=== PATIENT | female | born 1945 | race Caucasian/White ===

== ENCOUNTER 2021-07-21 11:48 | Inpatient (IN) | payer OTHER, SELFPAY ==
[~2021-07-21] VITALS: Ht 154.9 cm; Wt 50.8 kg
[2021-07-21 11:55] VITALS: BP 146/69
--- NOTE | 2021-07-21 11:55 | NUR ---
75 y/o F BIBA from home c/o syncope. Per EMS, patient had a witness syncope by at home and was assisted from standing position onto bed. states patient did not fall or had injury. Denies head/neck/back pain. EMS staets +LOC. +Orthostatic hypotension on scene: BP laying 140 systolic to sitting 110 systolic with HR increase 11bpm. Patient A&Ox3 for EMS, A&Ox4 upon ER arrival. Patient states soreness to generalized body, 8/10 pain. Reports constipation last BM: 2 weeks ago. 20G left AC by EMS with 200mL NS en route. at bedside reports has had appetite changes since + COVID in September and has lost 50 lbs since 09/2020. Pt denies nausea, vomiting, diarrhea, headache, blurry vision, abdominal pain, chest pain, SOB, cough, cold-like symptoms. Pt placed into gown and cognos bi developer. Skin warm/pink/dry. No bruising, deformities, bleeding noted to body/extremities. Bed locked in lowest position, side rails x 1, call light in reach. PMH/Sx/Meds: 2 bladder repairs, Tylenol PM, + COVID 09/2020 JANEE
[2021-07-21] MEDS ORDERED: NACL 0.9% 1,000 ML IV SCH ×2 (12:05→13:35)
[2021-07-21] MEDS ORDERED: cefTRIAXone 1,000 MG in DEXT 5% MINI-BAG PLUS 50 ML IV ONE (12:05)
--- NOTE | 2021-07-21 12:12 | NUR ---
Bedpan in place. Pt attempting to void.
[2021-07-21] MEDS ORDERED: cefTRIAXone 1,000 MG VIAL ONE (12:15)
--- NOTE | 2021-07-21 12:15 | NUR ---
Blood cultures, sample, and UA handed to CPT meera at ER bedside
--- NOTE | 2021-07-21 12:20 | NUR ---
EMT at bedside for EKG
--- NOTE | 2021-07-21 12:25 | NUR ---
RAD at bedside
[2021-07-21 12:37] LABS: BILIRUBIN,URINE 1+ (NEGATIVE); BLOOD, URINE 1+ (NEGATIVE); COLOR,URINE YELLOW (YELLOW); LEUKOCYTE ESTERASE ,URINE 1+ (NEGATIVE); NITRITE, URINE NEGATIVE (NEGATIVE); UGLUCOSE NEGATIVE (NEGATIVE)
[2021-07-21 12:44] LABS: CALCIUM OXALATE CRYSTALS,UR 1 /HPF (None Seen); RBC,URINE 0-5 /HPF (0-5); WBC,URINE 0-5 /HPF (0-5)
[2021-07-21 12:46] LABS: APPEARANCE,URINE SLIGHTLY HAZY (CLEAR)
[2021-07-21 12:48] LABS: BASOPHILS % (AUTO) 0.3 % (0.0-2.0); EOSINOPHILS % (AUTO) 0.5 % (0.0-4.0); HEMATOCRIT 37.5 % (36-48); HEMOGLOBIN 12.6 g/dL (12.0-16.0); LYMPHOCYTES # (AUTO) 1.9 K/uL (2.5-16.5); LYMPHOCYTES % (AUTO) 33.3 % (20.5-51.1); MEAN CORPUSCULAR HEMOGLOBIN 34 pg (27-31); MEAN CORPUSCULAR HGB CONC 34 g/dL (33-37); MEAN CORPUSCULAR VOLUME 101.8 fL (80-94); MONOCYTES # (AUTO) 0.3 K/uL (0.8-1.0); MONOCYTES % (AUTO) 4.9 % (1.7-9.3); NEUTROPHILS # (AUTO) 3.5 K/uL (1.8-7.7); PLATELET COUNT (AUTO) 176 K/uL (140-450); RED BLOOD CELL COUNT(AUTO) 3.68 MIL/uL (4.20-5.40); RED CELL DISTRIBUTION WIDTH 13.7 % (11.6-13.7); WHITE BLOOD COUNT (AUTO) 5.7 K/uL (4.8-10.8)
--- NOTE | 2021-07-21 13:05 | NUR ---
Pt states need to void. Bedpan provided. Urine output 50mL yellow/clear.
--- NOTE | 2021-07-21 13:10 | NUR ---
Patient placed onto diaper.
--- NOTE | 2021-07-21 13:15 | NUR ---
[facility]
--- NOTE | 2021-07-21 13:30 | NUR ---
Pt returned from CT by abhishek. Placed back onto household personal assistant. Bed locked in lowest position, side rails x 1.
[2021-07-21 14:05] LABS: ALBUMIN 3.7 g/dL (3.4-5.0); ANION GAP 16.1 (8-16); ASPARTATE AMINOTRANSFERASE 18 U/L (15-37); CARBON DIOXIDE 26.6 mmol/L (21-32); CHLORIDE 107 mmol/L (98-107); CREATININE 0.8 mg/dL (0.6-1.3); GLUCOSE 72 mg/dL (74-106); POTASSIUM 3.7 mmol/L (3.5-5.1); SODIUM SERUM 146 mmol/L (136-145); TOTAL BILIRUBIN 0.5 mg/dL (0.0-1.0); UREA NITROGEN, BLOOD 22 mg/dL (7-18)
--- NOTE | 2021-07-21 14:14 | NUR ---
Patient resting in position of comfort. A&Ox4 at this time. quality assurance monitor body in place. Bed locked in lowest position, side rails x 1.
--- NOTE | 2021-07-21 14:15 | NUR ---
Contacted Nayana for report, states to call back in 10 minutes
[2021-07-21] MEDS ORDERED: [UNRECOGNIZED DRUG - CODE] PO (14:16)
--- NOTE | 2021-07-21 14:25 | NUR ---
Attempted call back, no answer.
--- NOTE | 2021-07-21 14:40 | NUR ---
Patient will be admitted to care of Dr. Delgado. Admited to Med/Surg. Will go to room 124B. Belongings list completed. Report to KAMARI Kraus.
--- NOTE | 2021-07-21 14:45 | NUR ---
PATIENT ARRIVED ON UNIT FROM ED. ARRIVED VIA GURNEY. ACCOMPANIED BY . BEDSIDE REPORT GIVEN. WILL CONTINUE TO MONITOR.
--- NOTE | 2021-07-21 15:10 | NUR ---
PATIENT IS ALERT AND ORIENTED X3-4. AT TIMES FORGETS DATE. PATIENT IS ABLE TO VERBALIZE NEEDS TO STAFF. PATIENT IS ON ROOM AIR, WITH 02 SAT AT 97%. RESPIRATIONS ARE EVEN AND UNLABORED. NO SIGNS OF DISTRESS NOTED. PATIENT IS ON REGULAR DIET, PREFERS NO MEAT, LIKES FISH. ABD IS NON-TENDER, NON-DISTENDED WITH BOWEL SOUNDS PRESENT. PATIENT IS CONTINENT OF BOWEL AND BLADDER. PATIENT HAS IV TO LAC 20G. IV IS INTACT AND PATENT. SKIN IS WARM, DRY, AND INTACT. PATIENT PRESENTED TO ER FOR CHIEF COMPLAINT OF SYNCOPE. DIAGNOSIS IS SYNCOPE AND UTI. PATIENT HAS NO PRIOR HISTORY OF RECENT HOSPITALIZATION. PATIENT STATES SHE HAD COVID EARLIER THIS YEAR, AND SINCE THIS HER APPETITE HAS LOWERED A BIT. PATIENT STATES SHE LIVES AT HOME WITH HER . STATES THAT SHE IS ABLE TO AMBULATE AT HOME, AND DOES MOST ADL'S INDEPENDENTLY, EXCEPT FOR SHOWING. STATES SHE REQUIRES MILD ASSISTANCE WITH SHOWERS. PATIENT STATES SHE DOES NOT TAKE ROUTINE MEDICATIONS AT HOME, ONLY TYLENOL PM AND THAT IS IF SHE HAS TROUBLE SLEEPING. WILL CONTINUE TO MONITOR. CALL LIGHT WITHIN REACH. ALL SAFETY MEASURES IN PLACE.
[2021-07-21 16:00] VITALS: BP 127/64
[2021-07-21] MEDS ORDERED: ACETAMINOPHEN 325 MG TAB PO PRN (16:25)
[2021-07-21] MEDS ORDERED: guaiFENesin DM 200/20 MG-10 ML 10 ML UDC PO PRN (16:25)
[2021-07-21] MEDS ORDERED: HYDROcodone/APAP 7.5/325 MG 1 TAB PO PRN (16:25)
[2021-07-21] MEDS ORDERED: DOCUSATE SODIUM 100 MG GELCAP PO PRN (16:25)
[2021-07-21] MEDS ORDERED: ONDANSETRON 4 MG/2 ML VIAL IM/IVP PRN (16:25)
[2021-07-21] MEDS ORDERED: MECLIZINE 25 MG TAB PO PRN (16:30)
--- NOTE | 2021-07-21 17:03 | NUR ---
DID ROUNDS ON PATIENT. PATIENT IS IN BED AT THIS TIME SPEAKING TO HER . NO COMPLAINTS OF PAIN OR DISCOMFORT. NO SIGNS OF DISTRESS NOTED. WILL CONTINUE TO MONITOR.
[2021-07-21 17:30] LABS: BARBITURATE, URINE NEGATIVE ng/ml (NEG <=200); BENZODIAZEPINE, URINE NEGATIVE ng/mL (NEG <=200); CANNABINOID, URINE NEGATIVE ng/mL (NEG <=50); COCAINE, URINE NEGATIVE ng/mL (NEG <=300); OPIATE, URINE NEGATIVE ng/mL (NEG <=2000); PHENCYCLIDINE SCREEN,URINE NEGATIVE ng/mL (NEG <=25)
[2021-07-21 18:05] LABS: CHOL/HDL RATIO 3.9 (1-4.5); FREE T4 (FREE THYROXINE) 1.19 ng/dL (0.76-1.46); MAGNESIUM 1.8 mg/dL (1.8-2.4); PHOSPHORUS 3.2 mg/dL (2.5-4.9); THYROID STIMULATING HORMONE 1.05 uIU/mL (0.34-3.74)
[2021-07-21 18:07] LABS: PROTHROMBIN TIME 10.1 secs (10.8-13.4)
[2021-07-21] MEDS: DEXT 5% /NACL 0.9% 1,000 ML IV SCH (18:26)
--- NOTE | 2021-07-21 19:20 | NUR ---
ENDORSED PATIENT TO FELT CEMENTER NURSE. PATIENT STABLE.
--- NOTE | 2021-07-21 19:21 | NUR ---
RECEIVED ENDORSEMENT FROM MORNING SHIFT FOR CONTINUITY OF CARE. PATIENT IS AWAKE AND ALERT. A&OX4. VERBALLY RESPONSIVE AND ABLE TO COMMUNICATE NEEDS. DENIES PAIN AT THIS TIME. O2 SAT OF 97% ON RA. RESPIRATIONS EVEN AND UNLABORED. NO APPARENT S/SX OF ACUTE DISTRESS. SKIN IS WARM, DRY, AND INTACT. IV SITE IN LAC 20G PATENT/INTACT WITH D5NS INFUSING AT 100 ML PER HOUR PER MD ORDER. WHITE COMMUNICATION BOARD AND POC UPDATED. ALL SAFETY MEASURES IN PLACE. CALL LIGHT WITHIN REACH. ENCOURAGED PATIENT TO USE CALL LIGHT FOR ANY NEEDS/ASSISTANCE. WILL CONTINUE TO MONITOR.
--- NOTE | 2021-07-21 20:00 | NUR ---
PATIENT'S PLAN OF CARE WAS DISCUSSED AND REVIEWED WITH DEEP WELL CONTRACTOR: CASANDRA HALE
--- NOTE | 2021-07-21 21:00 | NUR ---
VOIDED MODERATE AMOUNT OF YELLOW URINE. CLEANSED AND MADE COMFORTABLE IN BED WITH PILLOWS. CALL LIGHT PLACED WITHIN REACH OF PATIENT. INSTRUCTED TO CALL NURSE WHEN NEEDING HELP. VERBALIZED UNDERSTANDING. PUT BED ON ALARM.
--- NOTE | 2021-07-21 23:00 | NUR ---
HAD SMALL AMOUNT OF BM, SOFT BROWN IN COLOR. CLEANSED AND REPOSITIONED IN BED WITH PILLOWS FOR COMFORT.
[2021-07-21] MEDS: ZOLPIDEM 5 MG TAB PO PRN (23:42)
--- NOTE | 2021-07-21 23:42 | NUR ---
UNABLE TO SLEEP, MEDICATED WITH AMBIEN PER MD ORDER. WITH FORGETFULNESS. REORIENTED TO HOSPITAL SETTING.
--- NOTE | 2021-07-22 00:42 | NUR ---
STILL AWAKE IN BED. OCCASIONALLY ATTEMPTING TO GET OUT OF BED. REORIENTED TO HOSPITAL SETTING.
--- NOTE | 2021-07-22 01:35 | NUR ---
ANSWERED CALL LIGHT. PATIENT IS REQUESTING TO BE PULLED UP. FIXED PATIENT'S POSITION IN BED AND MADE COMFORTABLE. IV MACHINE BEEPING. FLUSHED IV LINE WITH NS. NO SIGNS OF INFILTRATION NOTED. IV SITE PATENT AND INTACT. RESUMED IVF PER MD ORDER. PATIENT DENIES PAIN AT THIS TIME. RESPIRATIONS EVEN AND UNLABORED. WHITE BOARD COMMUNICATION UPDATED. ALL SAFETY MEASURES IN PLACE. CALL LIGHT WITHIN REACH. WILL CONTINUE TO MONITOR.
[2021-07-22] MEDS: DEXT 5% /NACL 0.9% 1,000 ML IV SCH ×3 (02:25→22:25)
--- NOTE | 2021-07-22 03:35 | NUR ---
PATIENT REQUESTED TO GO TO THE BR BUT EXPLAINED THAT PATIENT'S UNSTEADY GAIT IS NOT SAFE. PATIENT DOES NOT WANT TO USE BEDPAN. BEDSIDE COMMODE PROVIDED. PATIENT VOIDED. CLEANED PATIENT AND REPOSITIONED IN BED FOR COMFORT. PATIENT DENIES PAIN AT THIS TIME. RESPIRATIONS EVEN AND UNLABORED. NO APPARENT S/SX OF ACUTE DISTRESS. WHITE COMMUNICATION BOARD UPDATED. CALL LIGHT WITHIN REACH. WILL CONTINUE TO MONITOR.
[2021-07-22 04:00] VITALS: BP 115/62
--- NOTE | 2021-07-22 05:16 | NUR ---
CHECKED PATIENT. STABLE AND ASLEEP IN SUPINE POSITION. CHEST RISING AND FALLING. RESPIRATIONS EVEN AND UNLABORED. NO APPARENT S/SX OF ACUTE DISTRESS. WHITE BOARD COMMUNICATION UPDATED. ALL SAFETY MEASURES IN PLACE. CALL LIGHT WITHIN REACH. WILL CONTINUE TO MONITOR.
[2021-07-22 05:44] LABS: BASOPHILS % (AUTO) 0.2 % (0.0-2.0); EOSINOPHILS % (AUTO) 0.6 % (0.0-4.0); HEMATOCRIT 31.6 % (36-48); HEMOGLOBIN 10.9 g/dL (12.0-16.0); LYMPHOCYTES # (AUTO) 1.1 K/uL (2.5-16.5); LYMPHOCYTES % (AUTO) 22.1 % (20.5-51.1); MEAN CORPUSCULAR HEMOGLOBIN 35 pg (27-31); MEAN CORPUSCULAR HGB CONC 35 g/dL (33-37); MEAN CORPUSCULAR VOLUME 100.5 fL (80-94); MONOCYTES # (AUTO) 0.3 K/uL (0.8-1.0); MONOCYTES % (AUTO) 6.7 % (1.7-9.3); NEUTROPHILS # (AUTO) 3.5 K/uL (1.8-7.7); NEUTROPHILS % (AUTO) 70.4 % (42.2-75.2); PLATELET COUNT (AUTO) 157 K/uL (140-450); RED BLOOD CELL COUNT(AUTO) 3.15 MIL/uL (4.20-5.40); RED CELL DISTRIBUTION WIDTH 13.6 % (11.6-13.7)
[2021-07-22 05:51] LABS: ANION GAP 10.5 (8-16); CARBON DIOXIDE 27.8 mmol/L (21-32); CHLORIDE 109 mmol/L (98-107); CREATININE 0.6 mg/dL (0.6-1.3); GLUCOSE 94 mg/dL (74-106); POTASSIUM 3.3 mmol/L (3.5-5.1); SODIUM SERUM 144 mmol/L (136-145); UREA NITROGEN, BLOOD 14 mg/dL (7-18)
--- NOTE | 2021-07-22 07:19 | NUR ---
ENDORSED PATIENT TO MORNING SHIFT FOR CONTINUITY OF CARE. PATIENT IS STABLE.
--- NOTE | 2021-07-22 08:00 | NUR ---
Patient awake, alert but forgetful. Able to follow simple commands. Safety measures in place with call light within reach, safety measures in place and has no further needs.
[2021-07-22] MEDS: PANTOPRAZOLE 40 MG TABEC PO SCH (10:16)
[2021-07-22 12:00] VITALS: BP 123/64
--- NOTE | 2021-07-22 14:19 | NUR ---
PATIENT HAS BEEN SCREENED AND CATEGORIZED MODERATE NUTRITION RISK. PATIENT WILL BE SEEN WITHIN 3-5 DAYS OF ADMISSION. 07/22/21 07/26/[address]
[2021-07-22] MEDS: POTASSIUM CHLORIDE 10 MEQ TABER PO PRN (15:08)
--- NOTE | 2021-07-22 15:11 | NUR ---
DC PLANNING: THE PATIENT ADMITTED THROUGH THE ED WITH A SYNCOPAL EPISODE. THE PATIENT WAS POSITIVE FOR UTI, AND WAS ADMITTED FOR TREATMENT AND CARDIAC W/U. CM SPOKE WITH THE PATIENTS DANIELE BY PHONE REGARDING DISCHARGE PLANNING. THE PATIENT LIVES IN A SINGLE STORY HOUSE WITH HER AND ADULT GRANDSON. SHE IS SOMEWHAT SEDENTARY AND USUALLY AMBULATES IN THE HOUSE BUT NOT MUCH BEYOND THAT. THE PATIENT WAS HOSPITALIZED A PSYCHIATRIC IP AT [facility] FOR 2 WEEKS SECONDARY TO ANXIETY AND DEPRESSION. HER STATES THAT SHE HAS LOST 50 LBS SINCE SEPTEMBER AND THAT HER PCP DISCONTINUED HER ANTI-ANXIETY MEDICATIONS. SHE SEES HER PCP EVERY 6 MONTHS, AND DOES REQUIRE ASSISTANCE AT TIMES WITH ADLS. SHE HAS NO HISTORY OF HOME HEALTH OR DME USE, AND HAS NO OTHER HEALTH ISSUES. THE DC PLAN IS FOR THE PATIENT TO RETURN HOME WITH FAMILY WHEN CLINICALLY STABLE. CM WILL FOLLOW FOR NEEDS. Addendum: 07/23/21 at 1110 by Louise Carter CM DC PLANNING: ORDER FOR DC PLANNING TO SNF FOR P.T. AND IV ABX. CLINICALS SENT TO [facility] FOR THEIR SNF'IST TO REVIEW AND APPROVE. RANDELL SPOKE WITH THE PATIENTS DANIELE AND EXPLAINED THE NEED FOR SNF, AND THAT [facility] WILL DIRECT THE CM WHERE TO REFER THE PATIENT TO. DANIELE STATES HE'S IN AGREEMENT WITH SENDING THE PATIENT TO A CONTRACTED SNF, CM WILL UPDATE HIM ONCE THE PATIENT HAS BEEN REFERRED. CM WILL FOLLOW FOR NEEDS. Addendum: 07/23/21 at 1441 by Louise Carter CM DC PLANNING: PATIENT ACCEPTED TO [facility], ROOM 3A UNDER DR HAYS. [address]ESS [address] [phone] THE PATIENT IS NOT YET READY FOR DC, PER DR ANG ANTICIPATE DC THIS OR MONDAY. CLINICAL REVIEW LEFT FOR RANDELL KNOWLES AT [facility] ON HER VM SHE ASKED FOR JUSTIFICATION FOR CHANGING THE PATIENT FROM OBS TO IP. IF THE PATIENT DISCHARGES THIS BRAD NEEDS TO BE CALLED TO TRANSPORT, . AUTH NUMBER FOR TRANSPORT [id number]. RANDELL WILL FOLLOW FOR NEEDS. Addendum: 07/26/21 at 1446 by Louise Carter CM DC PLANNING: PATIENT TO DC TO [facility] TODAY. PATIENT GOING TO ROOM 3A, BEING PICKED UP BY [facility] BETWEEN 1530 AND 1630. DC INFORMATION GIVEN TO THE PATIENTS KAMARI MCDOWELL INCLUDING THE PHONE NUMBER TO CALL REPORT. RANDELL ALSO SPOKE WITH THE SNF TO LET THEM KNOW THAT THEY WILL NEED TO PROVIDE DINNER FOR THE PATIENT. CM WILL FOLLOW FOR NEEDS.
--- NOTE | 2021-07-22 19:25 | NUR ---
RECEIVED REPORT FROM AM SHIFT NURSE, FOR CONTINUITY OF CARE. NO S/S OF DISTRESS ON RA. PT IS CONFUSED AT BASELINE. DENIES ANY PAIN. IV ON LEFT AC G20 RUNNING D5NS @100MLS/HR. SKIN IS WARM, DRY AND NON DIAPHORETIC. CALL LIGHT WITHIN REACH. ALL SAFETY MEASURES IN PLACE. WILL CONTINUE TO MONITOR.
[2021-07-22 20:00] VITALS: BP 97/55
--- NOTE | 2021-07-22 21:10 | NUR ---
PT IV SITE WAS LEAKING, CHECKED AND ASSESSED AND IT IS OUT. WILL RE-INSERT NEW IV. CALL LIGHT WITHIN REACH. ALL SAFETY MEASURES IN PLACE.
--- NOTE | 2021-07-22 22:20 | NUR ---
IV G22 RE-INSERTED ON RIGHT WRIST BY JAKY BENITES. FLUIDS REGULATED ORDERED. WILL CONTINUE TO MONITOR.
--- NOTE | 2021-07-23 00:15 | NUR ---
PT LYING IN BED, NO S/S OF DISTRESS. BREATHING IS EVEN AND UNLABORED. CLEANED AND CHANGED PT DIAPER. NEEDS ATTENDED. CALL LIGHT WITHIN REACH. SAFETY PRECAUTIONS IN PLACE. KEPT SIDE RAILS UP X3 AND BED IN LOWEST POSITION.
[2021-07-23] MEDS: DEXT 5% /NACL 0.9% 1,000 ML IV SCH ×3 (01:00→18:04)
--- NOTE | 2021-07-23 02:00 | NUR ---
HEARD A NOISE, WENT TO PT ROOM, FOUND PT SITTING ON THE FLOOR BESIDE THE BED. PT AWAKE, BUT CONFUSED. PT STATED SHE IS TRYING TO GET OUT OF BED AND FELL. ASSESSED THE PT AND ONLY NOTED SMALL LACERATION ON RIGHT FOREARM. NO OTHER INJURY FOUND. CLEANSED RIGHT FOREARM LACERATION WITH SALINE. NO FURTHER BLEEDING NOTED. CHECKED PT VITAL SIGNS BP-118/49, RR 21, SC 78, T97.6, O2 SAT 99%. NOTIFIED THE CHARGE NURSE EDWAR, PROCESS IMPROVEMENT SPECIALIST LIO AND DR. ANG. NEW ORDERS GIVEN. FALL PRECAUTIONS IMPLEMENTED. REMINDED AND INSTRUCTED PT NOT TO GET OUT BED WITHOUT ASSISTANCE. PT VERBALIZED UNDERSTANDING BUT NEED REINFORCEMENT. BED IN LOW POSITION, SIDE RAILS X3, BED ALARM ON AND BREAKS ON. CALL LIGHT WITHIN REACH AND WILL CONTINUE POC AND OBSERVATION.
--- NOTE | 2021-07-23 02:45 | NUR ---
PT WAS PICKED UP VIA WHEELCHAIR BY THE [employer]. PT LEFT THE UNIT IN STABLE CONDITION AWAKE AND ALERT ACCOMPANIED BY THE INSTITUTION LIBRARIAN.
--- NOTE | 2021-07-23 03:10 | NUR ---
PT CAME BACK FROM XRAY DEPARTMENT AND HELPED PT BACK IN BED. CALL LIGHT WITHIN REACH. CLOSE OBSERVATION IN PLACED.
[2021-07-23 04:00] VITALS: BP 121/65
--- NOTE | 2021-07-23 05:15 | NUR ---
PT STILL TRYING TO GET OUT OF BED, ASSISTED BACK AND REPOSITION ON BED. KEPT BED ON LOW POSITION WITH SIDE RAILS UP X3. KEPT BED ALARM AND BREAKS ON. CLEANED AND CHANGED PT DIAPER. ALL SAFETY MEASURES IN PLACE. WILL CONTINUE TO MONITOR.
[2021-07-23 06:07] LABS: T4 (THYROXINE) 7.4 ug/dL (4.5-12.0)
[2021-07-23 06:16] LABS: ANION GAP 10.3 (8-16); CARBON DIOXIDE 28.2 mmol/L (21-32); CHLORIDE 107 mmol/L (98-107); CREATININE 0.6 mg/dL (0.6-1.3); GLUCOSE 121 mg/dL (74-106); POTASSIUM 3.5 mmol/L (3.5-5.1); SODIUM SERUM 142 mmol/L (136-145); UREA NITROGEN, BLOOD 8 mg/dL (7-18)
[2021-07-23 06:25] LABS: BASOPHILS % (AUTO) 0.3 % (0.0-2.0); EOSINOPHILS % (AUTO) 0.1 % (0.0-4.0); HEMATOCRIT 32.9 % (36-48); HEMOGLOBIN 11.2 g/dL (12.0-16.0); LYMPHOCYTES % (AUTO) 18.2 % (20.5-51.1); MEAN CORPUSCULAR HEMOGLOBIN 35 pg (27-31); MEAN CORPUSCULAR HGB CONC 34 g/dL (33-37); MEAN CORPUSCULAR VOLUME 101.7 fL (80-94); MONOCYTES # (AUTO) 0.4 K/uL (0.8-1.0); MONOCYTES % (AUTO) 7.5 % (1.7-9.3); NEUTROPHILS # (AUTO) 4.2 K/uL (1.8-7.7); NEUTROPHILS % (AUTO) 73.9 % (42.2-75.2); PLATELET COUNT (AUTO) 173 K/uL (140-450); RED BLOOD CELL COUNT(AUTO) 3.23 MIL/uL (4.20-5.40); RED CELL DISTRIBUTION WIDTH 13.6 % (11.6-13.7); WHITE BLOOD COUNT (AUTO) 5.7 K/uL (4.8-10.8)
--- NOTE | 2021-07-23 07:50 | NUR ---
ENDORSED TO AM SHIFT NURSE, FOR CONTINUITY OF CARE. PT IS STABLE.
--- NOTE | 2021-07-23 07:51 | NUR ---
RECEIVED REPORT FROM DITCHER OPERATOR NURSE, FOR CONTINUITY OF CARE. PT IS AOX1, PT IS CONFUSED AT BASELINE. RESPIRATIONS EVEN AND UNLABORED. NO S/S OF DISTRESS ON RA. DENIES ANY PAIN. IV ON RIGHT WRIST 22G INFUSING FLUIDS WELL. SKIN IS WARM, DRY AND NON DIAPHORETIC. S/P FALL /. SITTER AT BEDSIDE. PLAN OF CARE DISCUSSED. CALL LIGHT WITHIN REACH. ALL SAFETY MEASURES IN PLACE. WILL CONTINUE TO MONITOR.
[2021-07-23 08:00] VITALS: BP 123/57
[2021-07-23] MEDS: PANTOPRAZOLE 40 MG TABEC PO SCH (08:59)
--- NOTE | 2021-07-23 09:30 | NUR ---
TRANSFERRED PATIENT TO ROOM 110B CLOSER TO OBSERVE PATIENT FOR SAFETY AND FALL PRECAUTIONS.
--- NOTE | 2021-07-23 09:30 | NUR ---
ALL SCHEDULED MEDS GIVEN. PT IS STABLE. NO DISTRESS NOTED. WILL CONTINUE TO MONITOR.
--- NOTE | 2021-07-23 11:00 | NUR ---
INSERTED IV ACCESS ON LAC 20G FOR CT.
--- NOTE | 2021-07-23 11:10 | NUR ---
COVID TEST SAMPLE OBTAINED. SENT DOWN TO LAB.
--- NOTE | 2021-07-23 14:00 | NUR ---
CHECKED ON PATIENT. PATIENT IS STABLE. NO DISTRESS NOTED. WILL CONTINUE TO MONITOR
[2021-07-23 16:00] VITALS: BP 129/63
--- NOTE | 2021-07-23 16:45 | NUR ---
CHECKED ON PATIENT. PATIENT IS STABLE. NO DISTRESS NOTED. WILL CONTINUE TO MONITOR
--- NOTE | 2021-07-23 19:35 | NUR ---
ENDORSED TO CIRCUS ARTIST NURSE FOR CONTINUITY OF CARE. PT IS STABLE.
[2021-07-23 20:00] VITALS: BP 145/96
[2021-07-23] MEDS: ZOLPIDEM 5 MG TAB PO PRN (20:21)
--- NOTE | 2021-07-23 22:19 | NUR ---
Received report from AM shift nurse. Patient is A&Ox2 and is confused and is actively anxious. Nos/s of distress is noted at this time. Chest rise is even and unlabored. Patient is in bed and is currently resting with bed in the lowest position and bed rails up with bed alarm on for safety. Will continue to monitor throughout the shift.
[2021-07-24 04:00] VITALS: BP 120/70
[2021-07-24] MEDS: DEXT 5% /NACL 0.9% 1,000 ML IV SCH ×2 (04:25→14:25)
--- NOTE | 2021-07-24 06:54 | NUR ---
Patient is currently sleeping with no s/s of distress. Patient rested throughout the shift with no anxiety or attempt to get out of bed. All current needs have been met. Will endorse further care to am shift nurse for continuity of care.
[2021-07-24 07:06] LABS: BASOPHILS % (AUTO) 0.3 % (0.0-2.0); EOSINOPHILS % (AUTO) 0.2 % (0.0-4.0); HEMATOCRIT 28.6 % (36-48); HEMOGLOBIN 9.9 g/dL (12.0-16.0); LYMPHOCYTES % (AUTO) 22.7 % (20.5-51.1); MEAN CORPUSCULAR HEMOGLOBIN 35 pg (27-31); MEAN CORPUSCULAR HGB CONC 34 g/dL (33-37); MEAN CORPUSCULAR VOLUME 100.6 fL (80-94); MONOCYTES # (AUTO) 0.4 K/uL (0.8-1.0); MONOCYTES % (AUTO) 9.5 % (1.7-9.3); NEUTROPHILS # (AUTO) 2.9 K/uL (1.8-7.7); NEUTROPHILS % (AUTO) 67.3 % (42.2-75.2); PLATELET COUNT (AUTO) 138 K/uL (140-450); RED BLOOD CELL COUNT(AUTO) 2.85 MIL/uL (4.20-5.40); RED CELL DISTRIBUTION WIDTH 13.6 % (11.6-13.7); WHITE BLOOD COUNT (AUTO) 4.3 K/uL (4.8-10.8)
[2021-07-24 07:09] LABS: ANION GAP 9.2 (8-16); CARBON DIOXIDE 27.9 mmol/L (21-32); CHLORIDE 111 mmol/L (98-107); CREATININE 0.5 mg/dL (0.6-1.3); GLUCOSE 91 mg/dL (74-106); POTASSIUM 3.1 mmol/L (3.5-5.1); SODIUM SERUM 145 mmol/L (136-145); UREA NITROGEN, BLOOD 11 mg/dL (7-18)
--- NOTE | 2021-07-24 07:20 | NUR ---
RECEIVED REPORT FROM NIGHT NURSE FOR CONTINUITY OF CARE. NO S/S OF DISTRESS. BREATHING IS EVEN AND UNLABORED. PT IS AOX3. DENIES PAIN. IV PATENT AND INTACT. CALL LIGHT IS WITHIN REACH. ALL SAFETY MEASURES IN PLACE.
--- NOTE | 2021-07-24 07:30 | NUR ---
PTS DANIELE IS AT BEDSIDE. NO S/S OF DISTRESS. BREATHING IS EVEN AND UNLABORED. CALL LIGHT IS WITHIN REACH. ALL SAFETY MEASURES IN PLACE.
--- NOTE | 2021-07-24 09:00 | NUR ---
PT IS RESTING. NO S/S OF DISTRESS. BREATHING IS EVEN AND UNLABORED. CALL LIGHT IS WITHIN REACH. ALL SAFETY MEASURES IN PLACE. PT IS STABLE.
--- NOTE | 2021-07-24 09:10 | NUR ---
(07/24/21) RD INITIAL ASSESSMENT COMPLETED PLEASE REFER TO NUTRITION ASSESSMENT UNDER CARE ACTIVITY FOR ESTIMATED NUTRITIONAL NEEDS. RD RECOMMENDATIONS: 1. CONTINUE REGULAR DIET TOLERATED. 2. RDN TO ADD HEALTH SHAKE 1 CARTON WITH EACH MEAL TID. THIS PROVIDES ADDITIONAL 900 KCAL AND 21 GM PROTEIN TO HELP MEET EST NEEDS. 3. CONSULT RDN PRN. 4. RD WILL F/U 3-5 DAYS; MODERATE RISK. VIKASH COON, , RDN
[2021-07-24] MEDS: PANTOPRAZOLE 40 MG TABEC PO SCH (10:08)
--- NOTE | 2021-07-24 11:05 | NUR ---
RAPID ALCIDES IS NEGATIVE.
--- NOTE | 2021-07-24 11:30 | NUR ---
PT WAS GIVEN PRN K+ PO FOR LOW K+ LABS. PT TOLERATED MEDICATION SWALLOWING WELL. PT IS STABLE.
[2021-07-24] MEDS: POTASSIUM CHLORIDE 10 MEQ TABER PO PRN (11:35)
[2021-07-24 12:00] VITALS: BP 125/70
--- NOTE | 2021-07-24 12:00 | NUR ---
PT DANIELE IS AT BEDSIDE. PT HAS NO S/S OF DISTRESS. BREATHING IS EVEN AND UNLABORED. CALL LIGHT IS WITHIN REACH. ALL SAFETY MEASURES IN PLACE. PT IS STABLE.
--- NOTE | 2021-07-24 14:00 | NUR ---
PT IS RESTING. NO S/S OF DISTRESS. BREATHING IS EVEN AND UNLABORED. CALL LIGHT IS WITHIN REACH. ALL SAFETY MEASURES IN PLACE. PT IS STABLE.
--- NOTE | 2021-07-24 16:15 | NUR ---
PT FLUIDS D5 NS CHANGED DUE TO RUNNING LOW. PT IS STABLE.
--- NOTE | 2021-07-24 17:00 | NUR ---
PT IS RESPONDING AND STATES SHE IS WARM. BLANKET WAS TAKEN OFF TO HELP COMFORT PT. TEMP IS WNL. NO S/S OF DISTRESS. BREATHING IS EVEN AND UNLABORED. CALL LIGHT IS WITHIN REACH. ALL SAFETY MEASURES IN PLACE. PT IS STABLE.
--- NOTE | 2021-07-24 19:28 | NUR ---
ENDORSED TO NIGHT NURSE FOR CONTINUITY OF CARE.
--- NOTE | 2021-07-24 19:29 | NUR ---
RECEIVED REPORT FROM AM SHIFT NURSE, FOR CONTINUITY OF CARE. PT IS A&OX3. NO S/S OF DISTRESS. BREATHING IS EVEN AND UNLABORED ON RA. DENIES ANY PAIN. IV INTACT AND PATENT RUNNING D5NS @100MLS/HR. SKIN IS WARM, DRY AND NON DIAPHORETIC. CALL LIGHT WITHIN REACH. ALL SAFETY MEASURES IN PLACE. WILL CONTINUE TO MONITOR.
[2021-07-24 20:00] VITALS: BP 122/59
--- NOTE | 2021-07-24 21:40 | NUR ---
CLEANED AND CHANGE PT DIAPER WITH RAIL SIGNAL DESIGNER. ASSISTED PT IN REPOSITIONING. NO COMPLAINTS MADE. ALL SAFETY MEASURES IN PLACE.
--- NOTE | 2021-07-24 23:35 | NUR ---
PT LYING IN BED, NO S/S OF DISTRESS. RESPIRATION IS EVEN AND NON LABORED. CALL LIGHT WITHIN REACH. ALL SAFETY PRECAUTIONS IN PLACE.
[2021-07-25] VITALS: BP 127/58
[2021-07-25] MEDS: DEXT 5% /NACL 0.9% 1,000 ML IV SCH ×4 (00:25→15:18)
[2021-07-25] MEDS: ZOLPIDEM 5 MG TAB PO PRN (02:01)
--- NOTE | 2021-07-25 02:01 | NUR ---
PT IS AGITATED TRYING TO REMOVE TELE MONITOR AND HER CLOTHES. PT STATED SHE WAS UNABLE TO SLEEP. ADMINISTERED AMBIEN ORDERED AND PT TOLERATED IT WELL. ALL SAFETY MEASURES IN PLACE. WILL CONTINUE TO MONITOR.
[2021-07-25 04:00] VITALS: BP 145/73
--- NOTE | 2021-07-25 04:15 | NUR ---
MADE ROUNDS ON PT, PT IS ASLEEP. CHEST RISE AND FALL IS SYMMETRICAL. NO S/S DISTRESS. WILL CONTINUE TO MONITOR.
--- NOTE | 2021-07-25 06:24 | NUR ---
CLEANED AND CHANGED PT DIAPER WITH FIXED CAPITAL CLERK. REPOSITIONED PT. PT TOLERATED THE ACTIVITY. NEEDS ATTENDED. ALL SAFETY MEASURES IN PLACE.
--- NOTE | 2021-07-25 07:15 | NUR ---
ENDORSED PT TO AM SHIFT NURSE, FOR CONTINUITY OF CARE. PT IS STABLE.
[2021-07-25 07:17] LABS: BASOPHILS % (AUTO) 0.3 % (0.0-2.0); EOSINOPHILS % (AUTO) 0.5 % (0.0-4.0); HEMATOCRIT 28.7 % (36-48); HEMOGLOBIN 9.9 g/dL (12.0-16.0); LYMPHOCYTES # (AUTO) 1.2 K/uL (2.5-16.5); LYMPHOCYTES % (AUTO) 30.2 % (20.5-51.1); MEAN CORPUSCULAR HEMOGLOBIN 35 pg (27-31); MEAN CORPUSCULAR HGB CONC 35 g/dL (33-37); MEAN CORPUSCULAR VOLUME 101.2 fL (80-94); MONOCYTES # (AUTO) 0.5 K/uL (0.8-1.0); MONOCYTES % (AUTO) 11.4 % (1.7-9.3); NEUTROPHILS # (AUTO) 2.4 K/uL (1.8-7.7); NEUTROPHILS % (AUTO) 57.6 % (42.2-75.2); PLATELET COUNT (AUTO) 137 K/uL (140-450); RED BLOOD CELL COUNT(AUTO) 2.83 MIL/uL (4.20-5.40); RED CELL DISTRIBUTION WIDTH 13.4 % (11.6-13.7); WHITE BLOOD COUNT (AUTO) 4.1 K/uL (4.8-10.8)
[2021-07-25 07:20] LABS: ANION GAP 8.7 (8-16); CARBON DIOXIDE 28.3 mmol/L (21-32); CHLORIDE 109 mmol/L (98-107); CREATININE 0.5 mg/dL (0.6-1.3); GLUCOSE 119 mg/dL (74-106); SODIUM SERUM 143 mmol/L (136-145); UREA NITROGEN, BLOOD 5 mg/dL (7-18)
[2021-07-25 08:00] VITALS: BP 129/67
--- NOTE | 2021-07-25 08:00 | NUR ---
RECEIVED REPORT FROM PRINTING TECHNICIAN FOR CONTINUITY OF CARE. PATIENT ALERT AWAKE ORIENTED X4, SEEMS MORE ALERT TODAY THAN YESTERDAY. ALI AT BEDSIDE. WITH IVF ON GOING AND INFUSING WELL. ON MONITOR SHOWS SR. NOT IN ANY DISTRESS NOTED, DENIES PAIN. NEEDS ATTENDED, CALL LIGHT WITHIN REACH. WILL CONTINUE TO MONITOR.
[2021-07-25] MEDS: PANTOPRAZOLE 40 MG TABEC PO SCH (09:17)
--- NOTE | 2021-07-25 11:21 | NUR ---
PATIENT ASLEEP, NOT IN ANY DISTRESS NOTED. SITTER INSIDE THE ROOM. WILL CONTINUE TO MONITOR.
[2021-07-25 12:00] VITALS: BP 142/71
[2021-07-25] MEDS ORDERED: ACET-9531 PO (12:02)
[2021-07-25] MEDS ORDERED: PANT40EC56 PO (12:02)
[2021-07-25] MEDS ORDERED: MECL-231 PO (12:02)
[2021-07-25] MEDS ORDERED: ZOLP5TAB1 PO (12:02)
--- NOTE | 2021-07-25 13:33 | NUR ---
CALLED [facility] FOR TABLE SAW OPERATOR, THEY SAID NO TRANSPORTATION OF TODAY THEIR AVAILABLE TABLE SAW OPERATOR IS [facility] AND SET UP AT 12-[address] REDDING.
[2021-07-25 16:00] VITALS: BP 138/74
[2021-07-25] MEDS: POTASSIUM CHLORIDE 10 MEQ TABER PO PRN (16:46)
--- NOTE | 2021-07-25 17:18 | NUR ---
[facility] CALLED AND THEY SAID THEY CAN ACCOMMODATE PATIENT. I CALLED THE AND HIS ON HIS WAY HERE. I CALLED [facility] AND SPOKE TO PATRICK SHE SAID THAT IT'S MORE THAN 24 HOURS AND THEIR NOT ECPECTING THE PATIENT. THEY DON'T HAVE BED FOR HER TONIGHT, JUST TO FOLLOW UP TOMORROW.
--- NOTE | 2021-07-25 19:31 | NUR ---
REPORT GIVEN TO THE NEXT SHIFT FOR CONTINUITY OF CARE. PATIENT IN STABLE CONDITION.
--- NOTE | 2021-07-25 19:32 | NUR ---
RECEIVED REPORT FROM AM SHIFT NURSE, FOR CONTINUITY OF CARE. PT IS A&OX3, ON RA, SHOWS NO SIGNS OF DISTRESS. DENIES PAIN. IV ON THE LEFT AC AND RIGHT FOREARM D5NS RUNNING AT 100 ML/HR. BED ALARM IS ON, CALL LIGHT WITHIN REACH, AND ALL SAFETY MEASURES IN PLACE. WILL CONTINUE TO MONITOR.
[2021-07-25 20:00] VITALS: BP 148/78
--- NOTE | 2021-07-25 21:40 | NUR ---
PT SLEEPING IN BED. SHOWS NO SIGNS OF DISTRESS. BREATHING ON RA. SAFETY MEASURES IN PLACE, CALL LIGHT WITHIN REACH, AND WILL CONTINUE TO MONITOR.
--- NOTE | 2021-07-25 23:20 | NUR ---
PT IN BED SLEEPING. NO S/S OF DISTRESS, RESP EVEN AND UNLABORED. BED LOWEST POSITION, BED ALARM ON, CALL LIGHT WITHIN REACH. WILL CONTINUE TO MONITOR.
[2021-07-26] MEDS ORDERED: MIRTAZAPINE 15 MG TAB PO SCH (00:15)
[2021-07-26] MEDS ORDERED: MIRT-33 PO (00:20)
[2021-07-26] MEDS: DEXT 5% /NACL 0.9% 1,000 ML IV SCH (01:59)
--- NOTE | 2021-07-26 01:59 | NUR ---
PT IS AWAKE, NO S/S DISTRESS, NO COMPLAINTS. HUNG IV D5NS REGULATED AT 100ML/HR. ALL SAFETY MEASURES IN PLACE, CALL LIGHT WITHIN REACH, WILL CONTINUE TO MONITOR.
[2021-07-26 04:00] VITALS: BP 137/71
--- NOTE | 2021-07-26 04:30 | NUR ---
CLEAN & CHANGED PATIENT. REPOSITION PT. PT PULLED OUT RFA IV. PT LAC RUNNING D5NS AT 100ML/HR. SAFETY MEASURES IN PLACE, CALL LIGHT WITHIN REACH, WILL CONTINUE TO MONITOR PT.
[2021-07-26 06:41] LABS: BASOPHILS % (AUTO) 0.3 % (0.0-2.0); EOSINOPHILS % (AUTO) 0.9 % (0.0-4.0); HEMATOCRIT 32.3 % (36-48); HEMOGLOBIN 10.9 g/dL (12.0-16.0); LYMPHOCYTES # (AUTO) 1.6 K/uL (2.5-16.5); LYMPHOCYTES % (AUTO) 31.3 % (20.5-51.1); MEAN CORPUSCULAR HEMOGLOBIN 35 pg (27-31); MEAN CORPUSCULAR HGB CONC 34 g/dL (33-37); MEAN CORPUSCULAR VOLUME 101.6 fL (80-94); MONOCYTES # (AUTO) 0.7 K/uL (0.8-1.0); MONOCYTES % (AUTO) 12.9 % (1.7-9.3); NEUTROPHILS # (AUTO) 2.9 K/uL (1.8-7.7); NEUTROPHILS % (AUTO) 54.6 % (42.2-75.2); PLATELET COUNT (AUTO) 158 K/uL (140-450); RED BLOOD CELL COUNT(AUTO) 3.17 MIL/uL (4.20-5.40); RED CELL DISTRIBUTION WIDTH 13.5 % (11.6-13.7); WHITE BLOOD COUNT (AUTO) 5.2 K/uL (4.8-10.8)
[2021-07-26 06:52] LABS: ANION GAP 10.2 (8-16); CARBON DIOXIDE 30.5 mmol/L (21-32); CHLORIDE 110 mmol/L (98-107); CREATININE 0.5 mg/dL (0.6-1.3); GLUCOSE 107 mg/dL (74-106); POTASSIUM 3.7 mmol/L (3.5-5.1); SODIUM SERUM 147 mmol/L (136-145); UREA NITROGEN, BLOOD 4 mg/dL (7-18)
[2021-07-26 07:01] LABS: MAGNESIUM 1.7 mg/dL (1.8-2.4); PHOSPHORUS 2.8 mg/dL (2.5-4.9)
--- NOTE | 2021-07-26 07:25 | NUR ---
ENDORSED TO AM SHIFT NURSE FOR CONTINUITY OF CARE. PT IS STABLE.
--- NOTE | 2021-07-26 07:30 | NUR ---
RECEIVED REPORT FROM NIGHT NURSE FOR CONTINUITY OF CARE. PATIENT IS AWAKE, NO DISTRESS NOTED. BREATHING IS EVEN AND UNLABORED. DENIES PAIN. R FA 22G INTACT. ON MEDSURG. RESTING IN BED. CALL LIGHT WITHIN REACH. PT IS STABLE. IS AT BEDSIDE.
--- NOTE | 2021-07-26 09:00 | NUR ---
PATIENT IS IN BED SPEAKING TO . NO COMPLAINTS OF PAIN OR DISCOMFORT. NO SIGNS OF DISTRESS NOTED. BREATHING IS EVEN AND UNLABORED. GIVEN ANTIBIOTIC. PT IS STABLE.
[2021-07-26] MEDS: PANTOPRAZOLE 40 MG TABEC PO SCH (09:50)
[2021-07-26] MEDS ORDERED: ROC2I IV (10:56)
--- NOTE | 2021-07-26 11:00 | NUR ---
PATIENT IS IN BED AT THIS TIME, SISTER IN LAW AT BEDSIDE. NO COMPLAINTS OF PAIN OR DISCOMFORT. NO SIGNS OF DISTRESS NOTED. BREATHING IS EVEN AND UNLABORED. PT IS STABLE.
[2021-07-26] MEDS ORDERED: fentaNYL citrate 0.05 MG/ML VIAL ONE (13:06)
[2021-07-26] MEDS ORDERED: MIDAZOLAM 5 MG/5 ML VIAL ONE (13:06)
--- NOTE | 2021-07-26 15:00 | NUR ---
GAVE REPORT TO NURSE AT [facility] ON PT AND EXPLAINED THAT PT WOULD BE PICKED UP SOON WITH [facility].
--- NOTE | 2021-07-26 16:00 | NUR ---
PT IS PICKED UP BY [facility]. DC PAPERS WERE SIGNED. PT TRANSFERRED TO [facility].
== END 2021-07-26 16:00 | DRG 640 ==
LOC: MED 11:48 → MTU 13:33 → OBSVTOIN 07-23 14:29 → UNDODISIN 07-26 12:30
PROVIDERS: ADMIT Family Medicine; ATTEND Family Medicine
DX: E86.0 Dehydration (principal); G93.41 Metabolic encephalopathy; N39.0 Urinary tract infection, site not specified; E87.0 Hyperosmolality and hypernatremia; E87.6 Hypokalemia; R55 Syncope and collapse; F32.9 Major depressive disorder, single episode, unspecified; E78.5 Hyperlipidemia, unspecified; Z20.822 Contact with and (suspected) exposure to COVID-19; Z79.899 Other long term (current) drug therapy
CPT/HCPCS: G0378 ×49; 36415; 70450; 71045; 71270; 72050; 73030; 73090; 73562; 80048; 80053; 80305; 81001; 82140; 82150; 83036; 83605; 83690; 83735; 83880; 84100; 84436; 84439; 84443; 84479; 84484; 85025; 85610; 85730; 87040; 87081; 87086; 93005; 93880; 97110; 97112; 97116; 97163-GP; 97530; J0696; J2250; J3010; J7060; Q0092; Q9967; U0003

== ENCOUNTER 2022-04-23 17:39 | Emergency (ER) | payer OTHER ==
[~2022-04-23] VITALS: Ht 154.9 cm; Wt 72.6 kg
[~2022-04-23 17:39] MED LIST: ACET-9531 PO; MECL-231 PO; MIRT-33 PO; PANT40EC56 PO; ROC2I IV; ZOLP5TAB1 PO; [UNRECOGNIZED DRUG - CODE] PO
[2022-04-23 18:16] VITALS: BP 110/60
[2022-04-23] MEDS ORDERED: NACL 0.9% 1,000 ML IV SCH (18:25)
--- NOTE | 2022-04-23 18:48 | NUR ---
34YR OLD FEMALE BIB EMS C/O [id number] AND POSS SI. PT IS ON A [address] [facility]. PT IS COMBATIVE YELLING . PT TOOK PILLS OF ATRAX 25MG. STATED SHE TOOK 3 AND DRANK A 12PK OF BEER. PT IN 4 POINT RESTRAINTS . PT WAS ASKED IF SHE WANTED TO HARM HER SELF. ATTEMPTED TO PUT PT ON DATA LIBRARIAN , PT KEEPS BITING THEM OFF. HOB ELEVATED. SIDE RAILS UP X2 BED AT LOWEST POSITION
--- NOTE | 2022-04-23 18:48 | NUR ---
LABS AND BLOOD CULTURES COLLECTED
[2022-04-23 19:04] LABS: BASOPHILS % (AUTO) 0.5 % (0.0-2.0); EOSINOPHILS # (AUTO) 0.1 K/uL (0-0.4); EOSINOPHILS % (AUTO) 1.6 % (0.0-4.0); HEMATOCRIT 36.4 % (36-48); HEMOGLOBIN 12.3 g/dL (12.0-16.0); LYMPHOCYTES # (AUTO) 2.2 K/uL (2.5-16.5); LYMPHOCYTES % (AUTO) 52.8 % (20.5-51.1); MEAN CORPUSCULAR HEMOGLOBIN 33 pg (27-31); MEAN CORPUSCULAR HGB CONC 34 g/dL (33-37); MONOCYTES # (AUTO) 0.3 K/uL (0.8-1.0); MONOCYTES % (AUTO) 7.1 % (1.7-9.3); NEUTROPHILS # (AUTO) 1.6 K/uL (1.8-7.7); PLATELET COUNT (AUTO) 156 K/uL (140-450); RED BLOOD CELL COUNT(AUTO) 3.75 MIL/uL (4.20-5.40); RED CELL DISTRIBUTION WIDTH 13.2 % (11.6-13.7); WHITE BLOOD COUNT (AUTO) 4.1 K/uL (4.8-10.8)
[2022-04-23 20:11] LABS: ALBUMIN 3.1 g/dL (3.4-5.0); ANION GAP 9.7 (8-16); ASPARTATE AMINOTRANSFERASE 18 U/L (15-37); CARBON DIOXIDE 28.8 mmol/L (21-32); CHLORIDE 109 mmol/L (98-107); CREATININE 0.6 mg/dL (0.6-1.3); GLUCOSE 89 mg/dL (74-106); POTASSIUM 3.5 mmol/L (3.5-5.1); SODIUM SERUM 144 mmol/L (136-145); TOTAL BILIRUBIN 0.3 mg/dL (0.0-1.0); UREA NITROGEN, BLOOD 12 mg/dL (7-18)
--- NOTE | 2022-04-23 21:40 | NUR ---
[facility] PROVIDED FOR PATIENT. ATTACHED PUREWICK ON PATIENT. PATIENT TOLERATED WELL.
--- NOTE | 2022-04-23 22:35 | NUR ---
JOHNY MD ON THE PHONE WITH THE FAMILY MEMBER ABOUT PATIENT STATUS AND WHAT WILL BE DONE NEXT.
[2022-04-23] MEDS ORDERED: CEPH-588 PO (22:42)
[2022-04-23] MEDS ORDERED: cefTRIAXone 1,000 MG VIAL ONE (23:01)
--- NOTE | 2022-04-23 23:32 | NUR ---
IV removed, catheter intact and site benign. Applied folded 4x4 gauze and tape to stop bleeding.
[2022-04-23 23:36] VITALS: BP 142/87
--- NOTE | 2022-04-23 23:36 | NUR ---
Patient discharged with v/s stable. Written and verbal after care instructions given and explained about delirium. Patient alert, oriented and verbalized understanding of instructions. Wheel Chair Assisted to car. All questions addressed prior to discharge. ID band removed. Patient advised to follow up with PMD. Rx of keflex given. Patient educated on indication of medication including possible reaction and side effects. Opportunity to ask questions provided and answered.
[2022-04-23 23:42] LABS: APPEARANCE,URINE CLEAR (CLEAR); BILIRUBIN,URINE NEGATIVE (NEGATIVE); BLOOD, URINE TRACE-I (NEGATIVE); COLOR,URINE YELLOW (YELLOW); LEUKOCYTE ESTERASE ,URINE TRACE (NEGATIVE); NITRITE, URINE NEGATIVE (NEGATIVE); UGLUCOSE NEGATIVE (NEGATIVE)
== END 2022-04-23 23:36 | disposition home or self-care (01) ==
LOC: MED 17:39
DX: G93.40 Encephalopathy, unspecified (principal); Z79.899 Other long term (current) drug therapy
CPT/HCPCS: 36415; 70450; 71045; 80053; 81003; 81025; 83605; 84484; 85025; 87040; 87086; 93005; 96361; 96365; 99285; J0696; J7030; Q0092

== ENCOUNTER 2022-05-02 07:43 | Emergency (ER) | payer OTHER ==
[~2022-05-02] VITALS: Ht 154.9 cm; Wt 65.8 kg
[~2022-05-02 07:43] MED LIST changes: +CEPH-588 PO
[2022-05-02 08:13] VITALS: BP 107/68
--- NOTE | 2022-05-02 08:18 | NUR ---
PT WC ASSISTED TO LOBBY
--- NOTE | 2022-05-02 08:37 | NUR ---
PT TRANSPORTED TO BED 4 VIA WC
--- NOTE | 2022-05-02 09:10 | NUR ---
76 y/o female bib c/o constipation and no bowel movement x12 days. at bedside states pt was in A/L up until 1 mo ago. States normal bowel pattern is every 2-3 days. Pt denies pain. Abdomen is soft, flat, non-tender. Bowel sounds active x4. Denies taking medication for bowel regimen, denies changes to medication regimen, denies changes in eating. Denies fever, chills, nv. Was seen in ER 1 week ago for UTI. 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 NKA PMH: "digestive issues"
--- NOTE | 2022-05-02 09:12 | NUR ---
taken to xray via abhishek
--- NOTE | 2022-05-02 09:47 | NUR ---
RETURNED FROM [facility] VIA [facility]
--- NOTE | 2022-05-02 10:45 | NUR ---
Dr Dobbins at bedside for evaluation
[2022-05-02] MEDS ORDERED: POLYETHYLENE GLYCOL 17 GM/PKT PO ONE (11:05)
[2022-05-02] MEDS ORDERED: DOCUSATE SODIUM 100 MG GELCAP PO SCH (11:05)
[2022-05-02] MEDS ORDERED: MINERAL OIL 135 ML ENEM RC ONE (11:05)
[2022-05-02] MEDS ORDERED: LACTULOSE 20 GM/30 ML UDC PO ONE (11:05)
[2022-05-02] MEDS ORDERED: PSYL0.4C2 PO (12:27)
[2022-05-02] MEDS ORDERED: DOCU-299 PO (12:27)
[2022-05-02 13:10] VITALS: BP 100/52
--- NOTE | 2022-05-02 13:11 | NUR ---
Patient discharged with v/s stable. Written and verbal after care instructions given and explained. Patient alert, oriented and verbalized understanding of instructions. Wheel Chair Assisted with to car. All questions addressed prior to discharge. ID band removed. Patient advised to follow up with PMD. Rx of COLACE,METAMUCIL given. Patient educated on indication of medication including possible reaction and side effects. Opportunity to ask questions provided and answered.
== END 2022-05-02 13:11 | disposition home or self-care (01) ==
LOC: MED 07:43
DX: K59.00 Constipation, unspecified (principal)
CPT/HCPCS: 74022; 99284

== ENCOUNTER 2022-05-31 19:06 | Emergency (ER) | payer OTHER ==
[~2022-05-31] VITALS: Ht 154.9 cm; Wt 65.8 kg
[~2022-05-31 19:06] MED LIST changes: +DOCU-299 PO; +PSYL0.4C2 PO
[2022-05-31 20:57] VITALS: BP 128/77
--- NOTE | 2022-05-31 21:03 | NUR ---
TO LOBBY FOLLOWING TRIAGE
--- NOTE | 2022-05-31 21:14 | NUR ---
PT W/C ASSISTED TO ER BED 7
[2022-05-31 21:43] LABS: BASOPHILS % (AUTO) 0.2 % (0.0-2.0); EOSINOPHILS % (AUTO) 0.1 % (0.0-4.0); HEMATOCRIT 42.1 % (36-48); LYMPHOCYTES # (AUTO) 1.5 K/uL (2.5-16.5); LYMPHOCYTES % (AUTO) 24.2 % (20.5-51.1); MEAN CORPUSCULAR HEMOGLOBIN 32 pg (27-31); MEAN CORPUSCULAR HGB CONC 33 g/dL (33-37); MEAN CORPUSCULAR VOLUME 96.5 fL (80-94); MONOCYTES # (AUTO) 0.4 K/uL (0.8-1.0); MONOCYTES % (AUTO) 6.2 % (1.7-9.3); NEUTROPHILS # (AUTO) 4.4 K/uL (1.8-7.7); NEUTROPHILS % (AUTO) 69.3 % (42.2-75.2); PLATELET COUNT (AUTO) 223 K/uL (140-450); RED BLOOD CELL COUNT(AUTO) 4.37 MIL/uL (4.20-5.40); RED CELL DISTRIBUTION WIDTH 13.2 % (11.6-13.7); WHITE BLOOD COUNT (AUTO) 6.4 K/uL (4.8-10.8)
[2022-05-31 21:48] LABS: APPEARANCE,URINE CLEAR (CLEAR); BILIRUBIN,URINE 1+ (NEGATIVE); BLOOD, URINE NEGATIVE (NEGATIVE); COLOR,URINE YELLOW (YELLOW); LEUKOCYTE ESTERASE ,URINE NEGATIVE (NEGATIVE); NITRITE, URINE NEGATIVE (NEGATIVE); UGLUCOSE NEGATIVE (NEGATIVE)
[2022-05-31 22:00] LABS: CARBON DIOXIDE 26.9 mmol/L (21-32); CHLORIDE 100 mmol/L (98-107); CREATININE 0.7 mg/dL (0.6-1.3); GLUCOSE 96 mg/dL (74-106); POTASSIUM 3.9 mmol/L (3.5-5.1); SODIUM SERUM 138 mmol/L (136-145); UREA NITROGEN, BLOOD 13 mg/dL (7-18)
--- NOTE | 2022-05-31 23:16 | NUR ---
76YR OLD FEMALE BIB FAMILY C/O UTI SX. PT HAS CHRONIC UTIS IN THE PAST. PT IS A&OX2. AT BEDSIDE. WHEELCHAIR BOUND. RESP EVEN AND UNLABORED. SKIN WARM DRY AND INTACT. HOB ELEVATED. BED AT LOWEST POSITION. SIDE RAILS UP X2 NKDA CHRONIC UTIS
[2022-05-31] MEDS ORDERED: NACL 0.9% 1,000 ML IV ONE (23:30)
--- NOTE | 2022-05-31 23:46 | NUR ---
IV ESTABLISHED 22G RIGHT WRIST, IVF INITIATED ORDERED. TOLERATED WELL
[2022-06-01] MEDS ORDERED: TAM75 PO (00:19)
[2022-06-01] MEDS ORDERED: OSELTAMIVIR PHOSPHATE 75 MG CAP PO ONE (00:20)
--- NOTE | 2022-06-01 00:39 | NUR ---
PATIENT UNABLE TO SWALLOW. MD MADE AWARE.
[2022-06-01] MEDS ORDERED: OSEL6PDR5 PO (00:49)
[2022-06-01] MEDS ORDERED: OSELTAMIVIR PHOSPHATE 6 MG/ML SUSPENSION PO ONE (00:50)
--- NOTE | 2022-06-01 01:55 | NUR ---
IV removed, catheter intact and site benign. Applied folded 4x4 gauze and tape to stop bleeding.
[2022-06-01 02:00] VITALS: BP 126/70
--- NOTE | 2022-06-01 02:00 | NUR ---
Patient discharged with v/s stable. Written and verbal after care instructions given INFLUENZA and explained. Patient alert, oriented and verbalized understanding of instructions. Ambulatory with steady gait. All questions addressed prior to discharge. ID band removed. Patient advised to follow up with PMD. Rx of TAMIFLU given.
== END 2022-06-01 02:00 | disposition home or self-care (01) ==
LOC: MED 19:06
DX: J10.1 Influenza due to other identified influenza virus with other respiratory manifestations (principal); Z20.822 Contact with and (suspected) exposure to COVID-19; Z98.890 Other specified postprocedural states
CPT/HCPCS: 36415; 80048; 81003; 85025; 87426; 87804; 96360; 99283; J7030

== ENCOUNTER 2022-06-17 17:05 | Emergency (ER) | payer OTHER ==
[~2022-06-17] VITALS: Ht 154.9 cm; Wt 52.2 kg
[~2022-06-17 17:05] MED LIST changes: +OSEL6PDR5 PO
--- NOTE | 2022-06-17 17:33 | NUR ---
BIB WHEELCHAIR TO ER BED 8
--- NOTE | 2022-06-17 17:38 | NUR ---
Dr. Dobbins evaluating patient at bedside.
[2022-06-17 17:39] VITALS: BP 126/86
[2022-06-17] MEDS ORDERED: NACL 0.9% 500 ML IV SCH (17:50)
--- NOTE | 2022-06-17 18:05 | NUR ---
IV started, bloodwork obtained, handed to CPT Gita at bedside.
[2022-06-17 18:13] LABS: BASOPHILS % (AUTO) 0.4 % (0.0-2.0); EOSINOPHILS % (AUTO) 0.1 % (0.0-4.0); HEMATOCRIT 40.9 % (36-48); HEMOGLOBIN 14.1 g/dL (12.0-16.0); LYMPHOCYTES # (AUTO) 1.5 K/uL (2.5-16.5); LYMPHOCYTES % (AUTO) 26.9 % (20.5-51.1); MEAN CORPUSCULAR HEMOGLOBIN 33 pg (27-31); MEAN CORPUSCULAR HGB CONC 35 g/dL (33-37); MEAN CORPUSCULAR VOLUME 95.4 fL (80-94); MONOCYTES # (AUTO) 0.4 K/uL (0.8-1.0); MONOCYTES % (AUTO) 6.7 % (1.7-9.3); NEUTROPHILS # (AUTO) 3.8 K/uL (1.8-7.7); NEUTROPHILS % (AUTO) 65.9 % (42.2-75.2); PLATELET COUNT (AUTO) 224 K/uL (140-450); RED BLOOD CELL COUNT(AUTO) 4.29 MIL/uL (4.20-5.40); RED CELL DISTRIBUTION WIDTH 13.3 % (11.6-13.7); WHITE BLOOD COUNT (AUTO) 5.7 K/uL (4.8-10.8)
[2022-06-17 18:22] LABS: PROTHROMBIN TIME 10.5 secs (10.8-13.4)
[2022-06-17 18:29] LABS: ALBUMIN 3.6 g/dL (3.4-5.0); ANION GAP 16.4 (8-16); ASPARTATE AMINOTRANSFERASE 22 U/L (15-37); CARBON DIOXIDE 26.4 mmol/L (21-32); CHLORIDE 100 mmol/L (98-107); CREATININE 0.6 mg/dL (0.6-1.3); GLUCOSE 76 mg/dL (74-106); POTASSIUM 3.8 mmol/L (3.5-5.1); SODIUM SERUM 139 mmol/L (136-145); TOTAL BILIRUBIN 0.7 mg/dL (0.0-1.0); UREA NITROGEN, BLOOD 17 mg/dL (7-18)
[2022-06-17 18:35] LABS: SALICYLATE < 2.8 mg/dL (2.8-20.0)
[2022-06-17 18:36] LABS: ACETAMINOPHEN < 0.5 ug/ml (10-30)
--- NOTE | 2022-06-17 19:27 | NUR ---
Report given to KAMARI Guido for transfer of care.
[2022-06-17] MEDS ORDERED: NACL 0.9% 500 ML IV ONE (20:25)
--- NOTE | 2022-06-17 20:40 | NUR ---
COVID-19 swabs collected and sent to lab.
--- NOTE | 2022-06-17 22:14 | NUR ---
urine sample collected and sent to lab and clean and change new diapers.
[2022-06-17] MEDS ORDERED: cefTRIAXone 1,000 MG VIAL ONE (22:17)
[2022-06-17 22:43] LABS: APPEARANCE,URINE CLEAR (CLEAR); BILIRUBIN,URINE NEGATIVE (NEGATIVE); BLOOD, URINE TRACE-I (NEGATIVE); COLOR,URINE YELLOW (YELLOW); LEUKOCYTE ESTERASE ,URINE NEGATIVE (NEGATIVE); NITRITE, URINE NEGATIVE (NEGATIVE); UGLUCOSE NEGATIVE (NEGATIVE)
[2022-06-17 22:53] LABS: RBC,URINE 0-5 /HPF (0-5); WBC,URINE 0-5 /HPF (0-5)
[2022-06-17 22:56] LABS: BARBITURATE, URINE NEGATIVE ng/ml (NEG <=200); BENZODIAZEPINE, URINE NEGATIVE ng/mL (NEG <=200); CANNABINOID, URINE POSITIVE ng/mL (NEG <=50); COCAINE, URINE NEGATIVE ng/mL (NEG <=300); OPIATE, URINE NEGATIVE ng/mL (NEG <=2000); PHENCYCLIDINE SCREEN,URINE NEGATIVE ng/mL (NEG <=25)
--- NOTE | 2022-06-18 01:08 | NUR ---
Spoke to patient's to update status.
--- NOTE | 2022-06-18 02:23 | NUR ---
Patient to be transferred to [facility]. Is being transferred due to Hign Level of care. Receiving facility has accepting physician and available space. ER physician has signed transfer form. Patient or responsible alliance party has agreed to transfer and signed form. Patient belongings inventoried and will be sent with patient. Copy of nursing notes, lab reports, EKG, Physicians Orders and X-rays to be sent with patient. Report called to KAMARI Barajas at receiving facility. [facility] ambulance service has been called for transfer.
--- NOTE | 2022-06-18 03:25 | NUR ---
Patient is sleeping, vss.
--- NOTE | 2022-06-18 04:42 | NUR ---
Clean and change new gown and diapers.
--- NOTE | 2022-06-18 06:02 | NUR ---
Patient appears to be resting comfortably in bed. Vital Signs within normal limits. Respirations even and unlabored.
--- NOTE | 2022-06-18 07:22 | NUR ---
Report given to KAMARI Chicas and endorse care of patient.
--- NOTE | 2022-06-18 07:52 | NUR ---
[facility] crew arrived for transportation. RN giving report at bedside.
--- NOTE | 2022-06-18 08:05 | NUR ---
[facility] crew leaving with pt to [facility].
[2022-06-18 08:07] VITALS: BP 145/72
--- NOTE | 2022-06-18 08:16 | NUR ---
PT TRANSFERRED TO [facility], REPORT GIVEN BY BOIL OFF WORKER NURSE TO [facility], PT ORIENTED TO NAME ONLY, DENIED ANY PAIN, DENIED ANY SOB, PT CALM AND COOPERATIVE, O2 SAT 99% RA, NO INCONTINENCE. REPORT GIVEN TO TRANSPORTING EMT, NATALEE FROM [facility] WAS NOTIFIED. [phone]
== END 2022-06-18 08:05 | disposition short-term general hospital (02) ==
LOC: MED 17:05
DX: G93.40 Encephalopathy, unspecified (principal); Z20.822 Contact with and (suspected) exposure to COVID-19; R53.1 Weakness; F03.90 Unspecified dementia, unspecified severity, without behavioral disturbance, psychotic disturbance, mood disturbance, and anxiety; Z79.899 Other long term (current) drug therapy; Z90.710 Acquired absence of both cervix and uterus; Z98.890 Other specified postprocedural states
CPT/HCPCS: 36415; 36600; 70450; 71045; 80053; 80305; 81001; 82140; 82550; 82803; 83605; 83880; 84484; 85025; 85610; 85730; 87040; 87086; 87426; 93005; 96361; 96365; 99285; G0480; G0482; J0696; Q0092

== ENCOUNTER 2022-07-25 17:13 | Emergency (ER) | payer OTHER ==
[~2022-07-25] VITALS: Ht 165.1 cm; Wt 62.1 kg
[~2022-07-25 17:13] MED LIST changes: -CEPH-588 PO; -MECL-231 PO; -ROC2I IV; -[UNRECOGNIZED DRUG - CODE] PO
--- NOTE | 2022-07-25 17:21 | NUR ---
SWABS AND BLOOD WALKED TO LAB
[2022-07-25 17:26] VITALS: BP 135/66
[2022-07-25 17:46] LABS: BASOPHILS % (AUTO) 0.5 % (0.0-2.0); EOSINOPHILS # (AUTO) 0.1 K/uL (0-0.4); EOSINOPHILS % (AUTO) 1.1 % (0.0-4.0); HEMATOCRIT 37.2 % (36-48); HEMOGLOBIN 12.5 g/dL (12.0-16.0); LYMPHOCYTES # (AUTO) 2.7 K/uL (2.5-16.5); LYMPHOCYTES % (AUTO) 43.6 % (20.5-51.1); MEAN CORPUSCULAR HEMOGLOBIN 33 pg (27-31); MEAN CORPUSCULAR HGB CONC 34 g/dL (33-37); MEAN CORPUSCULAR VOLUME 96.9 fL (80-94); MONOCYTES # (AUTO) 0.5 K/uL (0.8-1.0); MONOCYTES % (AUTO) 7.8 % (1.7-9.3); NEUTROPHILS # (AUTO) 2.9 K/uL (1.8-7.7); PLATELET COUNT (AUTO) 195 K/uL (140-450); RED BLOOD CELL COUNT(AUTO) 3.84 MIL/uL (4.20-5.40); RED CELL DISTRIBUTION WIDTH 14.1 % (11.6-13.7); WHITE BLOOD COUNT (AUTO) 6.2 K/uL (4.8-10.8)
--- NOTE | 2022-07-25 17:54 | NUR ---
76Y/O FEMALE BIBA FROM [facility] FOR SOB AND FEVER X1HOUR AGO. PER EMS, STAFF REPORTED A SUDDEN ONSET OF FEVERS AND TROUBLE BREATHING. UPON ARRIVAL, PT WAS AFEBRILE WITH ORAL TEMP OF 98 AND O2 SAT OF 98% ON ROOM AIR. PT DENIES ANY PAIN UPON ASSESSMENT. PT PLACED IN GOWN AND BEDSIDE MONITOR. DR. CORBETT MADE AWARE OF PT UPON ARRIVAL.
[2022-07-25 18:11] LABS: ALBUMIN 2.6 g/dL (3.4-5.0); ANION GAP 7.9 (8-16); ASPARTATE AMINOTRANSFERASE 22 U/L (15-37); CARBON DIOXIDE 30.9 mmol/L (21-32); CHLORIDE 110 mmol/L (98-107); CREATININE 0.6 mg/dL (0.6-1.3); GLUCOSE 86 mg/dL (74-106); POTASSIUM 3.8 mmol/L (3.5-5.1); SODIUM SERUM 145 mmol/L (136-145); TOTAL BILIRUBIN 0.2 mg/dL (0.0-1.0); UREA NITROGEN, BLOOD 12 mg/dL (7-18)
--- NOTE | 2022-07-25 19:27 | NUR ---
Pt report given to KAMARI Tovar. Transfer of care at this time.
--- NOTE | 2022-07-25 19:30 | NUR ---
ASSUMED CARE OF PT AT THIS TIME. PT IN POSITION OF COMFORT. A&OX2, RR EVEN AND UNLABORED. VSS. AWAITING RESULTS. WILL CONTINUE TO MONITOR.
--- NOTE | 2022-07-25 21:00 | NUR ---
URINE COLLECTED AND SENT TO LAB
[2022-07-25 21:33] LABS: APPEARANCE,URINE CLEAR (CLEAR); BILIRUBIN,URINE NEGATIVE (NEGATIVE); BLOOD, URINE NEGATIVE (NEGATIVE); COLOR,URINE YELLOW (YELLOW); LEUKOCYTE ESTERASE ,URINE TRACE (NEGATIVE); NITRITE, URINE NEGATIVE (NEGATIVE); PH,URINE 8.5 (5.0-9.0); UGLUCOSE NEGATIVE (NEGATIVE)
--- NOTE | 2022-07-25 22:19 | NUR ---
PT RESTING, VSS. NO S/S OF DISTRESS NOTED. AWAITING DECISION FOR ADMISSION AND OR DISCHARGE. WILL CONTINUE TO MONITOR.
--- NOTE | 2022-07-25 23:11 | NUR ---
SPOKE WITH AND WILL ATTEMPT TO GET [facility] OF OTHER FAMILY MEMBERS TO COME AND TAKE PT BACK TO [facility].
[2022-07-26 00:30] VITALS: BP 99/50
--- NOTE | 2022-07-26 00:30 | NUR ---
Patient discharged with v/s stable. Written and verbal after care instructions given and explained. Patient verbalized understanding. Wheel Chair Assisted with by caregiver. All questions addressed prior to discharge. Advised to follow up with PMD.
[2022-07-30] MEDS ORDERED: CEPH250C16 PO (18:27)
--- NOTE | 2022-07-30 18:30 | NUR ---
LATE ENTRY, RECEIVED POSITIVE URINE CULTURE. FORM GIVEN TO DR LUNA. RX OF KEFLEX SENT TO PTS PHARMACY. DR LUNA CONTACTED FACILITY AND LEFT MESSAGE. FORM PLACED IN BINDER.
== END 2022-07-26 00:30 | disposition home or self-care (01) ==
LOC: MED 17:13
DX: R06.00 Dyspnea, unspecified (principal); Z20.822 Contact with and (suspected) exposure to COVID-19; R50.9 Fever, unspecified; F03.90 Unspecified dementia, unspecified severity, without behavioral disturbance, psychotic disturbance, mood disturbance, and anxiety; Z79.899 Other long term (current) drug therapy
CPT/HCPCS: 36415; 71045; 80053; 81003; 83605; 83880; 84484; 85025; 87040; 87086; 87426; 87804; 99284; Q0092